=== PATIENT | male | born 1940 ===

== ENCOUNTER 2025-02-24 10:27 | Day surgery (SDC) | payer OTHER ==
[2025-02-10 13:42] LABS: Absolute Basophils 0.1 K/uL (0-0.5); Absolute Eosinophils 0.5 K/uL (0-0.5); Absolute Lymphocytes (CBC) 1.5 K/uL (0.7-4.9); Absolute Neutrophil 7.8 K/uL (1.8-8.0); Basophils % 0.6 % (0-1.3); Eosinophils % 4.8 % (0-4.4); Hematocrit 45.7 % (39.6-49.0); Lymphocytes % 13.9 % (15.3-44.8); MCH 31.9 pg (27.0-35.0); MCHC 35.1 g/dL (32.0-36.0); MCV 90.9 fL (80-100); MPV 7.8 fL (7.6-11.3); Monocytes % 9.2 % (3.3-12.3); Neutrophils % 71.5 % (41.7-73.7); Platelets 213 thou/uL (152-406); Protime INR 1.06; RBC Red Blood Cell Count 5.03 M/uL (4.33-5.43); Red Cell Distribution Width 15.7 % (12.1-15.2)
[2025-02-10 13:51] LABS: Anion Gap 5.3 mEq/L (5.0-15.0); Potassium 4.3 mEq/L (3.5-5.1)
--- NOTE | 2025-02-10 14:01 | RAD REPORT ---
EXAMINATION: TWO VIEW CHEST XR CLINICAL INDICATION: Pre-op pending procedure TECHNIQUE: 2 views of the chest was performed. COMPARISON: No prior exam. 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 The heart is upper limit of normal in size. No displaced fractures evident. Thin anterior bridging thoracic osteophyte. 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
[2025-02-10 14:08] LABS: Specific Gravity 1.009 (1.005-1.030); Sqamous Epithelial None Seen /HPF (None Seen); Urine Bacteria 20-50 /HPF (<20); Urine Bilirubin NEGATIVE (Negative); Urine Blood Trace (Negative); Urine Clarity Extremely Turbid (Clear); Urine Color Yellow (Yellow); Urine Culture Reflex Order REFLEXED; Urine Glucose NEGATIVE (Negative); Urine Ketones NEGATIVE (Negative); Urine Microscopic Reflex YN ORDER UMIC; Urine Nitrite 1+ (Negative); Urine Protein NEGATIVE (Negative); Urine Urobilinogen Normal (Normal); Urine WBC >50 /HPF (<5); Urine WBC Clump Occasional /HPF (None Seen); Urine Yeast (Budding) Trace /HPF (None Seen); Urine pH 6.5 (5.0-7.0)
[2025-02-24] MEDS: Ringers Lactate 1,000 ML IV ONE (10:50)
[2025-02-24] MEDS ORDERED: ONDANSETRON 4 MG/2 ML VIAL ONE (11:55)
[2025-02-24] MEDS ORDERED: FENTANYL CITR 100 MCG/2 ML ONE ×2 (11:55→13:01)
[2025-02-24] MEDS ORDERED: propofoL 200 MG/20 ML VIAL IV ONE (11:55)
[2025-02-24] MEDS ORDERED: GENTAMICIN 80 MG/100 ML BAG 160 MG/200 ML BAG IV ONE (12:02)
[2025-02-24] MEDS ORDERED: EPHEDRINE SULF 50 MG/ML VIAL ONE (12:31)
[2025-02-24] MEDS: AMPICILLIN SODIUM 2 GM/VIAL VIAL ONE (12:35)
[2025-02-24] MEDS: TRIAMCINOLONE ACETON 40 MG/ML VIAL ONE (12:45)
[2025-02-24] MEDS ORDERED: TRIAMCINOLONE ACETON 40 MG/ML VIAL ONE (13:02)
--- NOTE | 2025-02-24 14:14 | RAD REPORT ---
EXAM: Fluoroscopy use, Cystography HISTORY: CYSTO COMPARISON: None FINDINGS: Multiple images were sent to PACS, during a fluoroscopically guided procedure. No radiologi st was involved in protocoling or performance of the study, and no radiologist was present for the duration of the procedure. No interpretation of the saved images will be provided. Total fluoroscopy time: 0.09. 4.4 mGy IMPRESSION: Documentation of fluoroscopy use as above. Transcribed Date/Time: 02/24/2025 2:13 PM
[2025-02-24] MEDS ORDERED: CODEINE 30MG/APAP 300MG TAB PO ONE (14:21)
[2025-02-24] MEDS: OXYBUTYNIN ER 5 MG TAB PO ONE (15:15)
[2025-02-24] MEDS: PHENAZOPYRIDINE 100MG TAB PO ONE (15:15)
--- NOTE | 2025-02-24 15:22 | P.OP ---
Date of Service: 02/24/25 Preoperative diagnoses: Bulbar urethral stricture disease History of radical prostatectomy History of adjuvant radiation therapy Postoperative diagnoses: Bulbar urethral stricture disease History of radical prostatectomy History of adjuvant radiation therapy Principal procedures: Cystoscopy Retrograde urethrogram Direct vision internal ureterotomy Injection of 40 mg intralesional Kenalog 22 Libyan urethral Bahena catheter placement Indications for procedure: 84-year-old gentleman who presented to the urology clinic with obstructive LUTS and recurrent/persistent E. coli UTI found to have stricture disease prohibiting cystoscopic evaluation. Procedure note: The patient was consented in the preoperative holding area before being transferred to the operative suite where general anesthesia was induced. He was given ampicillin 2 g and gentamicin 160 mg IV antimicrobial prophylaxis. Pneumoboots were provided for DVT prophylaxis. He was placed in the lithotomy position, padded and secured to the table appropriately. His genitalia was prepped with Hibiclens and he was draped in standard fashion. The case has begun using a 22 Libyan rigid cystoscope to traverse the urethra until within the bulb of the urethra, stricture disease was noted. I passed a Super Stiff wire via the strictured narrowing with some resistance but ultimately was able to navigate into the bladder as evidenced fluoroscopically with a coil observed appropriate positioning. Alongside the wire, I placed a 22 Libyan catheter tip into the meatus and inflated the balloon of the catheter in the fossa navicularis using approximately 1 cc sterile water. I then performed a retrograde urethrogram. Retrograde urethral Griffey: Using full-strength Omnipaque contrast, contrast was injected via the 22 Libyan catheter and did navigate up the distal into the mid and proximal urethra where area of stricture narrowing was identified that spanned a distance of approximately 2 to 3 cm before entry into the bladder. The wire was in appropriate position within the bladder. As a result, I removed the urethral Bahena catheter and placed the 26 Libyan sheath of the urethrotome into his meatus. I then utilized the 12 degree lens and the cold knife passed via his urethra to the point of stricture disease where I then used the cold knife to incise the stricture disease at the 5 and the 7:00 positions before additionally incising at the 12 o'clock position across the entire length of the stricture, which was approximately 2 cm in length. The striated sphincter was uninvolved and there was no significant contracture of the bladder neck. So once I had adequately incised the stricture disease, I was able to navigate the [address] all the way into his bladder. I decompressed his bladder fluid and urine and surveyed its entirety. There were no papillary mucosal lesions, foreign bodies or stones noted throughout. I then removed the urethrotome and replaced it with a 22 Libyan rigid cystoscope. At this point, I utilized a GI endoscopic injection needle where 40 mg Kenalog was mixed in 3 cc NS, and I injected approximately 1 cc into each incised area of the stricture. Once this was done, I navigated the cystoscope beyond the stricture narrowing into the bladder again, but I felt an area of resistance anteriorly at the proximalmost aspect of the incised stricture area. As a result, I replaced the urethrotome sheath and the 12 degree lens with a cold knife and incised a bit further until that resistance was abrogated. I then was able to pass a [address] the way via his urethra into his bladder with ease alongside the indwelling safety Super Stiff wire. There, I inflated the balloon with 15 cc of sterile water and removed the Super Stiff wire. I allowed the bladder to decompress the fluid and urine and the catheter was connected to leg bag. I then took the patient out of the lithotomy position, where he was awakened from general anesthesia. He was then transferred to a stretcher before being transferred to the recovery room in good condition. Complications: None Discharge disposition: He should keep the urethral Bahena catheter for 10 to 14 days at which point a voiding trial may be established in the urology clinic and the catheter removed. I sent a prescription for Bactrim DS for him to take starting the day prior to scheduled catheter removal for 3 days total. Subsequent follow-up should be established in 2 to 3 months for cystoscopy to assess for recurrence of significant strictured narrowing. Otherwise, a prescription for oxybutynin XL/Ditropan XL was sent to manage bladder spasms while the catheter was in place recognizing it might also be of benefit postoperatively if he has issues with urge incontinence.
[2025-02-24 16:35] VITALS: BP 159/79; TEMP 96.9; O2SAT 97
[2025-02-24] MEDS ORDERED: OXYBUTYNIN ER 5 MG TAB PO ONE (17:17)
[2025-02-24] MEDS ORDERED: PHENAZOPYRIDINE 100MG TAB PO ONE (17:17)
== END 2025-02-24 15:43 | disposition home or self-care (01) ==
LOC: OR 10:27
PROVIDERS: ATTEND Urology
PROC: 3E0K83Z Introduction of Anti-inflammatory into Genitourinary Tract, Via Natural or Artificial Opening Endoscopic (ICD-10-PCS; 2025-02-24)
PROC: 0T7D8ZZ Dilation of Urethra, Via Natural or Artificial Opening Endoscopic (ICD-10-PCS; principal; 2025-02-24 12:30)
DX: N35.912 Unspecified bulbous urethral stricture, male (principal); N39.0 Urinary tract infection, site not specified; C61 Malignant neoplasm of prostate; Z92.3 Personal history of irradiation; Z90.79 Acquired absence of other genital organ(s)
CPT/HCPCS: 87088; 85025; 81001; 87086; 80048; 36415; 85610; 87077; 87186; 71046; 51600; 74430; 52276; 52283; J2704; J3301; J3010 ×2; J2405; J0290; J7120; J1580